=== PATIENT | female | born 1980 | race Two or more races ===

== ENCOUNTER 2024-11-07 14:01 | Emergency (ER) | payer BC ==
[~2024-11-07] VITALS: Ht 165.1 cm; Wt 81.6 kg
[2024-11-07] MEDS ORDERED: ZOLM2.5T7 PO (15:04)
[2024-11-07 15:11] VITALS: BP 126/90; TEMP 98.1; O2SAT 99
== END 2024-11-07 15:11 | disposition home or self-care (01) ==
LOC: ER 14:01
DX: R51.9 Headache, unspecified (principal); R55 Syncope and collapse
CPT/HCPCS: A4606; A4663